=== PATIENT | female | born 1970 | race Two or more races ===

== ENCOUNTER 2022-04-26 00:08 | Emergency (ER) | payer MEDICAID ==
[~2022-04-26] VITALS: Ht 165.1 cm; Wt 74.4 kg
[2022-04-26] MEDS ORDERED: IBUPROFEN 400 MG TABLET PO ONE (00:30)
--- NOTE | 2022-04-26 00:33 | NUR ---
Jorge matamoros in [facility] - 04/26/22 at 0038 by [email or web address] SAMI AT BEDSIDE
[2022-04-26] MEDS ORDERED: IBUPROFEN 400 MG TABLET ONE (00:36)
--- NOTE | 2022-04-26 01:05 | NUR ---
Note shiloh in EDM - 04/26/22 at 0108 by LENARD BIBPARTNER FROM HOME C/O R ANKLE PAIN "TWISTED ANKLE" FROM STEPPING OFF STAIRS. PATIENT IS AAOX4. ABLE TO MAKE NEEDS KNOWN. CHANGED TO PATIENT'S GOWN. PLACED COMFORTABLY IN BED. VITALS CHECKED.
--- NOTE | 2022-04-26 01:05 | NUR ---
RAMIREZ FROM HOME C/O RLQ ABD PAIN & R LOWER BACK PAIN SINCE 5PM. -N/V. TOOK ADVIL WITH NO RELIEF. PATIENT IS AAOX4. ABLE TO MAKE NEEDS KNOWN. PLACED COMFORTABLY IN BED. CHANGED TO HOSPITAL GOWN, VITALS CHECKED.
--- NOTE | 2022-04-26 01:05 | NUR ---
URINE SPECIMEN SENT TO LAB
--- NOTE | 2022-04-26 01:10 | NUR ---
SEEN BY DR WATERMAN AT BEDSIDE
[2022-04-26] MEDS ORDERED: MORPHINE SULFATE INJ 4 MG/ML DISP.SYRIN ONE (01:16)
[2022-04-26] MEDS ORDERED: ONDANSETRON HCL/PF 4 MG/2 ML VIAL ONE (01:16)
[2022-04-26] MEDS ORDERED: ONDANSETRON HCL/PF 4 MG/2 ML VIAL IVP ONE (01:30)
[2022-04-26] MEDS ORDERED: IV NS 0.9% 1,000 ML BAG IV ONE (01:30)
[2022-04-26] MEDS ORDERED: MORPHINE SULFATE INJ 2 MG/ML DISP.SYRIN IV ONE (01:30)
--- NOTE | 2022-04-26 01:30 | NUR ---
IV LINDSAY G20 INSERTED ON LEFT AC. BLOOD DRAWN AND SENT TO LAB
--- NOTE | 2022-04-26 01:30 | NUR ---
PT BROUGHT TO CT DEPT
--- NOTE | 2022-04-26 01:30 | NUR ---
WAIVER SIGNED THAT SHE IS NOT .
[2022-04-26 01:36] LABS: BASOPHILS % (AUTO) 0.2 % (0.0-2.0); HEMATOCRIT 40 % (33-45); HEMOGLOBIN 12.7 g/dL (11.5-14.8); LYMPHOCYTES % (AUTO) 23.5 % (20.0-44.0); MEAN CORPUSCULAR HGB CONC 32 g/dl (31.0-36.0); MEAN CORPUSCULAR VOLUME 82 fL (82-100); MONOCYTES # (AUTO) 0.8 K/uL (0.1-1.30); MONOCYTES % (AUTO) 6.4 % (2.0-12.0); NEUTROPHILS # (AUTO) 8.7 K/uL (1.8-8.9); NEUTROPHILS % (AUTO) 68.9 % (43.0-81.0); PLATELET COUNT (AUTO) 275 K/uL (150-450); RED BLOOD CELL COUNT(AUTO) 4.81 MIL/uL (4.0-5.2); WHITE BLOOD COUNT (AUTO) 12.6 K/uL (4.3-11.0)
[2022-04-26 01:40] LABS: BILIRUBIN,URINE 1+ (NEGATIVE); COLOR,URINE DARK YELLOW (YELLOW); LEUKOCYTE ESTERASE ,URINE NEGATIVE (NEGATIVE); NITRITE, URINE NEGATIVE (NEGATIVE); PH,URINE 5.5 (5.0-8.0); PROTEIN,URINE 2+ mg/dl (NEGATIVE); UGLUCOSE TRACE mg/dL (NEGATIVE); UROBILINOGEN,URINE 0.2 EU/dL (0.2)
[2022-04-26 01:43] LABS: BACTERIA,URINE Rare /HPF (None Seen); RBC,URINE 51-80 /HPF (0-2); SQUAMOUS EPITHELIAL CELL,UR Few /HPF (None Seen)
[2022-04-26 01:46] LABS: CALCIUM, SERUM 9.4 mg/dL (8.5-10.1); CREATININE 1.1 mg/dL (0.6-1.3); POTASSIUM 3.6 mmol/L (3.5-5.1)
[2022-04-26 01:52] LABS: ALBUMIN 3.3 g/dL (3.4-5.0); BILIRUBIN,DIRECT 0.1 mg/dL (0.0-0.2); BILIRUBIN,TOTAL 0.2 mg/dL (0.2-1.0); TOTAL PROTEIN, SERUM 7.4 g/dL (6.4-8.2)
[2022-04-26] MEDS ORDERED: KETOROLAC TROMETHAMINE INJ 30 MG/ML VIAL IV ONE (02:30)
[2022-04-26] MEDS ORDERED: KETOROLAC TROMETHAMINE INJ 30 MG/ML VIAL ONE (02:30)
--- NOTE | 2022-04-26 03:21 | NUR ---
ULTRASOUND AT BEDSIDE
--- NOTE | 2022-04-26 03:32 | NUR ---
REJI BALES AT BEDSIDE
--- NOTE | 2022-04-26 05:05 | NUR ---
IV CANNULA REMOVED
--- NOTE | 2022-04-26 05:05 | NUR ---
Patient discharged to home in stable condition. Written and verbal after care instructions given. Patient verbalizes understanding of instruction.
[2022-04-26 05:06] VITALS: BP 135/83
== END 2022-04-26 05:07 | disposition home or self-care (01) ==
LOC: ER 00:11
DX: N20.0 Calculus of kidney (principal)
CPT/HCPCS: 99285; 74176; 96374; 76705; 96375; 85025; 80048; 83690; 80076; 81001; 36415; 85730; J2270; J1885; J2405; J7030